=== PATIENT | female | born 1995 | race Hispanic/Latino ===

== ENCOUNTER 2018-12-10 15:46 | Emergency (ER) | payer SELFPAY ==
--- NOTE | 2018-12-10 16:53 | ER ---
Nurse's Notes [facility] Name: Angela Carmen Age: 22 yrs Sex: Female : 1995 Arrival Date: 12/10/2018 Time: 15:52 Bed 13 Private MD: Diagnosis: Low back pain Presentation: 12/10 15:56 Presenting complaint: Patient states: Sharp lower back pain that shoots to left aj buttocks that started suddenly 1 hour ago after bending to pick something up at work. Transition of care: patient was not received from another setting of care. Onset of symptoms was December 10, 2018. Care prior to arrival: None. 15:56 Method Of Arrival: Ambulatory aj 15:56 Acuity: SANTOS 4 aj 16:23 Risk Assessment: Do you want to hurt yourself or someone else? Patient reports no ls4 desire to harm self or others. Initial Sepsis Screen: Does the patient meet any 2 criteria? No. Patient's initial sepsis screen is negative. Does the patient have a suspected source of infection? No. Patient's initial sepsis screen is negative. Triage Assessment: 15:57 General: Appears in no apparent distress. comfortable, Behavior is calm, cooperative, aj appropriate for age. Pain: Complains of pain in lumbar area and left low back. Neuro: Level of Consciousness is awake, alert, obeys commands, Oriented to person, place, time, situation, Appropriate for age. Musculoskeletal: Circulation, motion, and sensation intact. Range of motion: intact in all extremities, Reports pain in lumbar area and left low back. 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 - Social history:: Smoking status: Patient/guardian denies using tobacco. - Ebola Screening: : Patient negative for fever greater than or equal to 101.5 degrees Fahrenheit, and additional compatible Ebola Virus Disease symptoms Patient denies exposure to infectious person Patient denies travel to an Ebola-affected area in the 21 days before illness onset No symptoms or risks identified at this time. Screenin:22 Abuse screen: Denies threats or abuse. Denies injuries from another. Nutritional ls4 screening: No deficits noted. Tuberculosis screening: No symptoms or risk factors identified. Fall Risk None identified. Assessment: 16:20 Pain: Complains of pain in low back area and back and left low back and lumbar area ls4 Pain currently is 4 out of 10 on a pain scale. Neuro: No deficits noted. 16:20 Neuro: Level of Consciousness is awake, alert, obeys commands. Cardiovascular: No ls4 deficits noted. Respiratory: No deficits noted. GI: No deficits noted. Derm: No deficits noted. Musculoskeletal: No deficits noted. Vital Signs: 15:57 BP 154 / 81; Pulse 85; Resp 17; Temp 98.4; Pulse Ox 97% on R/A; Weight 63.5 kg; Height aj 5 ft. 4 in. (162.56 cm); 15:57 Body Mass Index 24.03 (63.50 kg, 162.56 cm) aj ED Course: 15:52 Patient arrived in ED. as 15:57 Triage completed. aj 15:57 Arm band placed on left wrist. aj 16:20 Luis E Garsia PA is PHCP. jr8 16:20 Ross Florez MD is Attending Physician. jr8 16:22 Almita Grant, JOSE is Primary Nurse. ls4 16:22 Patient has correct armband on for positive identification. Bed in low position. Call ls4 light in reach. Side rails up X 1. 16:22 No provider procedures requiring assistance completed. Patient did not have IV access ls4 during this emergency room visit. 16:54 Urine collected: clean catch specimen, clear. dh3 Administered Medications: 17:20 Drug: TORadol - Ketorolac 15 mg Route: IM; Site: left deltoid; ls4 17:50 Follow up: Response: No adverse reaction; Marked relief of symptoms ls4 17:50 Follow up: Response: No adverse reaction; Marked relief of symptoms ls4 17:20 Drug: [place] (7.5 mg-325 mg) 1 tabs Route: PO; ls4 17:38 Follow up: Response: No adverse reaction; Marked relief of symptoms ls4 Outcome: 16:52 Discharge ordered by . jr8 17:37 Discharged to home ambulatory, with friend. ls4 17:37 Condition: good 17:37 Discharge instructions given to patient, friend, Instructed on discharge instructions, follow up and referral plans. medication usage, safety practices, Demonstrated understanding of instructions, follow-up care, medications, Prescriptions given X 2. 18:05 Patient left the ED. ls4 Signatures: Lia Caro, RN RN Brenda Elizondo Josh, PA PA 8 Ailyn Duran 3 Almita Grant RN RN ls4
--- NOTE | 2018-12-10 16:54 | EDPHYS ---
Physician Documentation [facility] Name: Angela Carmen Age: 22 yrs Sex: Female : 1995 Arrival Date: 12/10/2018 Time: 15:52 Bed 13 Private MD: ED Physician Ross Florez HPI: 12/10 16:34 This 22 yrs old Female presents to ER via Ambulatory with complaints of Back jr8 Pain. 16:34 The patient presents with pain that is acute. The symptoms are located in the low back. jr8 Onset: The symptoms/episode began/occurred acutely, today. The pain does not radiate. Associated signs and symptoms: The patient has no apparent associated signs or symptoms. The problem was sustained when lifting boxes. Modifying factors: The patient symptoms are alleviated by nothing, the patient symptoms are aggravated by any movement, bending. Severity of symptoms: At their worst the symptoms were moderate, in the emergency department the symptoms are unchanged. It is unknown whether or not the patient has had similar symptoms in the past. The patient has not recently seen a physician. Stated that while she was at work lifting boxes. Jackson pull in low back. Pain since then and had to leave work because pain was to severe. Denies bowel or bladder dysfunction. Denies radiation of pain, numbness, tingling, or saddle anesthesia . 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 - Social history:: Smoking status: Patient/guardian denies using tobacco. - Ebola Screening: : Patient negative for fever greater than or equal to 101.5 degrees Fahrenheit, and additional compatible Ebola Virus Disease symptoms Patient denies exposure to infectious person Patient denies travel to an Ebola-affected area in the 21 days before illness onset No symptoms or risks identified at this time. ROS: 16:34 Eyes: Negative for injury, pain, redness, and discharge, ENT: Negative for injury, jr8 pain, and discharge, Neck: Negative for injury, pain, and swelling, Cardiovascular: Negative for chest pain, palpitations, and edema, Respiratory: Negative for shortness of breath, cough, wheezing, and pleuritic chest pain, Abdomen/GI: Negative for abdominal pain, nausea, vomiting, diarrhea, and constipation, MS/Extremity: Negative for injury and deformity, Skin: Negative for injury, rash, and discoloration, Neuro: Negative for headache, weakness, numbness, tingling, and seizure. 16:34 Back: Positive for pain at rest, pain with movement, Negative for radiated pain. Exam: 16:34 Eyes: Pupils equal round and reactive to light, extra-ocular motions intact. Lids and jr8 lashes normal. Conjunctiva and sclera are non-icteric and not injected. Cornea within normal limits. Periorbital areas with no swelling, redness, or edema. ENT: Nares patent. No nasal discharge, no septal abnormalities noted. Tympanic membranes are normal and external auditory canals are clear. Oropharynx with no redness, swelling, or masses, exudates, or evidence of obstruction, uvula midline. Mucous membranes moist. Neck: Trachea midline, no thyromegaly or masses palpated, and no cervical lymphadenopathy. Supple, full range of motion without nuchal rigidity, or vertebral point tenderness. No Meningismus. Cardiovascular: Regular rate and rhythm with a normal S1 and S2. No gallops, murmurs, or rubs. Normal PMI, no JVD. No pulse deficits. Respiratory: Lungs have equal breath sounds bilaterally, clear to auscultation and percussion. No rales, rhonchi or wheezes noted. No increased work of breathing, no retractions or nasal flaring. Abdomen/GI: Soft, non-tender, with normal bowel sounds. No distension or tympany. No guarding or rebound. No evidence of tenderness throughout. Skin: Warm, dry with normal turgor. Normal color with no rashes, no lesions, and no evidence of cellulitis. MS/ Extremity: Pulses equal, no cyanosis. Neurovascular intact. Full, normal range of motion. Neuro: Awake and alert, GCS 15, oriented to person, place, time, and situation. Cranial nerves II-XII grossly intact. Motor strength 5/5 in all extremities. Sensory grossly intact. Cerebellar exam normal. Normal gait. 16:34 Back: pain, that is moderate, of the low back area, ROM is painful, with all movement, normal spinal alignment noted, CVA tenderness, is absent, muscle spasm, is not present. Vital Signs: 15:57 BP 154 / 81; Pulse 85; Resp 17; Temp 98.4; Pulse Ox 97% on R/A; Weight 63.5 kg; Height aj 5 ft. 4 in. (162.56 cm); 15:57 Body Mass Index 24.03 (63.50 kg, 162.56 cm) aj MDM: 16:20 Patient medically screened. 8 16:36 Data reviewed: vital signs, nurses notes, and as a result, I will discharge patient. jr8 Data interpreted: Pulse oximetry: on room air is 97 %. Interpretation: normal. Counseling: I had a detailed discussion with the patient and/or guardian regarding: the historical points, exam findings, and any diagnostic results supporting the discharge/admit diagnosis, the need for outpatient follow up, a family practitioner, to return to the emergency department if symptoms worsen or persist or if there are any questions or concerns that arise at home. 12/10 17:00 Order name: Urine Dipstick--Ancillary (enter results); Complete Time: 17:18 ms 12/10 17:00 Order name: Urine --Ancillary (enter results); Complete Time: 17:18 vt 12/10 16:36 Order name: Urine Test (obtain specimen); Complete Time: 16:54 jr8 12/10 16:36 Order name: Urine Dipstick-Ancillary (obtain specimen); Complete Time: 16:54 jr8 Administered Medications: 17:20 Drug: TORadol - Ketorolac 15 mg Route: IM; Site: left deltoid; ls4 17:50 Follow up: Response: No adverse reaction; Marked relief of symptoms ls4 17:50 Follow up: Response: No adverse reaction; Marked relief of symptoms ls4 17:20 Drug: [place] (7.5 mg-325 mg) 1 tabs Route: PO; ls4 17:38 Follow up: Response: No adverse reaction; Marked relief of symptoms ls4 Disposition: 12/11 07:26 Co-signature as Attending Physician, Ross Florez MD I agree with the assessment and kdr plan of care. Chart complete. Disposition: 12/10/18 16:52 Discharged to Home. Impression: Low back pain. - Condition is Stable. - Discharge Instructions: Back Pain, Adult, Musculoskeletal Pain, Back Exercises, [id number], Heat Therapy. - Prescriptions for Ibuprofen 800 mg Oral Tablet - take 1 tablet by ORAL route every 12 hours As needed take with food; 20 tablet. Zanaflex 4 mg Oral Tablet - take 1 tablet by ORAL route every 8 hours As needed; 20 tablet. - Medication Reconciliation Form, Thank You Letter, Antibiotic Education, Prescription Opioid Use form. - Follow up: Private Physician; When: 5 - 6 days; Reason: Recheck today's complaints, Continuance of care, Re-evaluation by your physician. - Problem is new. - Symptoms have improved. Signatures: Dispatcher [employer] EDLia Hollingsworth RN RN Ross De Jesus MD MD kdr Roszak, Josh, PA PA jr8 Almita Grant RN RN ls4 Corrections: (The following items were deleted from the chart) 12/10 18:05 16:52 12/10/2018 16:52 Discharged to Home. Impression: Low back pain. Condition is ls4 Stable. Forms are Medication Reconciliation Form, Thank You Letter, Antibiotic Education, Prescription Opioid Use. Follow up: Private Physician; When: 5 - 6 days; Reason: Recheck today's complaints, Continuance of care, Re-evaluation by your physician. Problem is new. Symptoms have improved. jr8
[2018-12-10 17:12] LABS: Urine Blood NEGATIVE (NEG); Urine Glucose NEGATIVE (NEG); Urine Protein NEGATIVE (NEG)
[2018-12-10] MEDS ORDERED: HYDROCODONE/APAP 7.5/325 MG TAB ONE (17:44)
[2018-12-10] MEDS ORDERED: KETOROLAC 30 MG/ML INJ ONE (17:44)
== END 2018-12-10 18:05 | disposition home or self-care (01) ==
LOC: ER 15:46
DX: M54.5 Low back pain (principal)
CPT/HCPCS: 81003; 81025; 96372; 99283

== ENCOUNTER 2020-06-11 02:39 | Emergency (ER) | payer SELFPAY ==
--- OUTSIDE RECORDS SUMMARY | 2020-06-11 02:41 | XMS REPORT | Continuity of Care Document ---
:1995 Author Organization [facility] t Address [address] [place] [address] Care Team Providers Name Role Phone Lab, [facility] Fam Pob I Attending Clinician Unavailable Gaurav Combs Attending Clinician Problems This patient has no known problems. Allergies, Adverse Reactions, Alerts This patient has no known allergies or adverse reactions. Medications This patient has no known medications. Procedures This patient has no known procedures. Encounters Start End Encounter Admission Attending Care Care Encounter Source Date/Time Date/Time Type Type Clinicians Facility Department ID 2020-04-11 2020-04-11 Laboratory Lab, [facility] [id number] 14:31:50 14:51:50 Only Fam Pob I Health [id number] [place] [id number] Professio [id number] nal 044 Office [address] One 2020-03-31 2020-03-31 Office Jarrod [facility] [id number] 10:54:57 11:38:37 Visit An Nolasco [employer] [id number] [facility] [id number] MATERNAL [id number] & CHILD [address] [place] [address] [facility] Results This patient has no known results.
--- OUTSIDE RECORDS SUMMARY | 2020-06-11 02:42 | XMS REPORT | Summary of Care ---
:1995 Author Organization [facility] Address [address] [place] [address] Care Team Providers Name Role Phone An Garay [facility] Primary Care Provider [phone] Encounter Details Date Type Department Care Team Description 03/17/2020 Orders Only [facility] Doctor Unassigned, No [address] [facility] [place] [address] [address] [place] [address] Allergies No Known Allergiesdocumented as of this encounter (statuses as of 03/22/2020) Medications No known medicationsdocumented as of this encounter (statuses as of 03/22/2020) Active Problems Problem Noted Date Nexplanon insertion 03/17/2020 Nexplanon removal 05/06/2018 Encounter for contraceptive management, unspecified ty pe 07/10/2014 documented as of this encounter (statuses as of 03/22/2020) Resolved Problems Problem Noted Date Resolved Date Well woman exam 01/13/2016 05/06/2018 Nexplanon insertion 01/13/2016 05/06/2018 care and examination of lactating mother 12/23/19 16 05/06/2018 Normal delivery 12/04/2015 12/23/2015 39 weeks gestation of 12/03/2015 12/23/19 16 Labor and delivery indication for care or intervention 12/0212/23/2015 Pain of round ligament affecting , antepartum 09/0912/03/2015 Excess weight gain in , second trimester 07/19/2015 12/04/2015 Elevated blood pressure reading without diagnosis of 015 12/04/2015 hypertension Supervision of high risk , antepartum 04/22/2015 12/04/2015 Nausea and vomiting in prior to 22 weeks gestation 04/22/2015 12/03/2015 Yeast infection of the vagina 07/10/2014 05/24/2015 Screening for STD (sexually transmitted disease) 07/10/2014 05/24/2015 Breast pain in female 04/07/2014 07/10/2014 General counseling for prescription of oral contraceptives 1 07/10/2014 Irregular menstrual cycle 04/07/2014 07/10/2014 documented as of this encounter (statuses as of 03/22/2020) Immunizations Name Administration Dates Next Due HPV9 03/14/2016, 01/13/2016 Influenza Virus Vaccine Quad .5 mL IM 6+ MO 06/30/2019 Influenza Virus Vaccine Quad IM 3+ YRS 04/22/2015 TDAP 09/23/2015 Td 04/07/2008 documented as of this encounter Social History Tobacco Use Types Packs/Day Years Used Date Never Smoker Smokeless Tobacco: Never Used Alcohol Use Drinks/Week oz/Week Comments No 0 Standard drinks or equivalent 0.0 Sex Assigned at Date Recorded Not on file COVID-19 Exposure Response Date Recorded In the last month, have you been in contact with No / Unsure 03/17/2020 11:01 AM CDT someone who was confirmed or suspected to have Coronavirus / COVID-19? documented as of this encounter Last Filed Vital Signs Not on filedocumented in this encounter Plan of Treatment Date Type Specialty Care Team Description 03/31/2020 Routine Visit [facility] Rebecca Garay, MARISOLP [address] [place], [place] [address] [phone] Health Maintenance Due Date Last Done Comments Depression Screening 06/30/2020 06/30/2019 HPV VACCINES (3 - 3-dose 07/06/2020 03/14/2016, Postpon ed from 07/15/2016 series) 01/13/2016 (Insurance / Fin ancial) INFLUENZA VACCINE (#1) 2020 06/30/2019, Postponed from 02/23/2020 04/22/2015 (Refused) PAP SMEAR 06/30/2022 06/30/2019, 09/23/2015 DTaP,Tdap,and Td Vaccines (3 09/22/2025 09/23/2015, - Td) 04/07/2008 PNEUMOCOCCAL 0-64 YEARS Aged Out No longe r eligible based COMBINED SERIES on patient's age to complete this to [facility] documented as of this encounter Procedures Procedure Name Priority Date/Time Associated Diagnosis Comme nts CONSENT FOR CONTRACEPTION Routine 03/17/2020 12:01 AM CDT documented in this encounter Results Not on filedocumented in this encounter Insurance Payer Benefit Plan / Subscriber ID Effective Dates Phone Addre ss Type Group [employer] FAMILY FAMILY PLANNING [id number] 2020-Kerry RAGLAND Agency PLANNING MAEGAN MAEGAN [phone] [place] [id number] [place] [address] documented as of this encounter Advance Directives Name Relationship Healthcare Agent Relationship Co mmunication Nimo Nichols [facility] Health Care Agent [phone] ( Home)
--- OUTSIDE RECORDS SUMMARY | 2020-06-11 02:42 | XMS REPORT | Summary of Care ---
:1995 Author Organization [facility] Address [address] [place] [address] Care Team Providers Name Role Phone An Garay [facility] Primary Care Provider [phone] Reason for Visit Reason Comments NEXPLANON Encounter Details Date Type Department Care Team Description 03/17/2020 Office Visit [facility]- An Garay [facility] control counseling (Primary Dx); Jennifer Nolasco [facility] Nexplanon insertion [address] [facility] [address] [place], [place] [phone] Allergies No Known Allergiesdocumented as of this encounter (statuses as of 03/17/2020) Medications Hospital, Clinic, or Other Ordered Dose Route Frequency Start Date End Date Status Facility Administered Medication etonogestreL (NEXPLANON) 68 mg Sdrm ONCE NOW 03/17/202002/23 Ended implant 68 mg documented as of this encounter (statuses as of 03/17/2020) Active Problems Problem Noted Date Nexplanon insertion 03/17/2020 Nexplanon removal 05/06/2018 Encounter for contraceptive management, unspecified ty pe 07/10/2014 documented as of this encounter (statuses as of 03/17/2020) Resolved Problems Problem Noted Date Resolved Date [...] as of this encounter (statuses as of 03/17/2020) Immunizations Name Administration Dates Next Due HPV9 [...] of this encounter Last Filed Vital Signs Vital Sign Reading Time Taken Comments Blood Pressure 127/73 03/17/2020 11:01 AM CDT Pulse 69 03/17/2020 11:01 AM CDT Temperature 36.1 C (96.9 F) 03/17/2020 11:01 AM CDT Respiratory Rate 16 03/17/2020 11:01 AM CDT Oxygen Saturation - - Inhaled Oxygen Concentration - - Weight 73.9 kg (163 lb) 03/17/2020 11:01 AM CDT Height 162.6 cm (5' 4") 03/17/2020 11:01 AM CDT Body Mass Index 27.98 03/17/2020 11:01 AM CDT documented in this encounter Progress Notes An Garay WHCNP - 03/17/2020 10:45 AM CDTNexplanon PLACEMENT PROCEDURE NOTE Preoperative Diagnoses: desires LARC The risks, benefits and alternatives were discussed. The patient voiced her understanding. She wished to proceed and an informed consent was obtained. Patient has been identified by name and and will be undergoing Nexplanon placement. Patient is right handed. Patient, procedure and site have been confirmed by the following clinicians: Re Garay DNP and Yadi Fox RN . Timeout performed by LAZARO Aguilar at time of procedure with Nori JOHN student present. Procedure: The patient is placed on the exam table in a supine position. Her non-dominant arm is flexed at the elbow and externally rotated so her wrist is parallel to her ear and her hand is positioned next to her head. The inner aspect of the upper arm is marked at 8cm and 12cm superior to the medial epicondyle, in the mid-portion of the upper arm, parallel with the humerus. The surface of the inner arm is then prepped with alcohol. Sterile drapes are applied. The insertion area is injected subcutaneously with 2 ccs of lidocaine 1% without epinephrine along the planned insertion tunnel. The Nex planon insertion needle is then inserted at 8cm superior to the medial epicondyle, using counter traction and lifting the skin to keep the needle in the subdermal connective tissue. The needle is advanced to 12 cm above the medial epicondyle. The cannula is then retracted and needle is removed. Thereis minimal bleeding from the insertion site. The Nexplanon capsule is easily palpable by myself and the patient. Sterile gauze and a pressure dressing is placed over the insertion site. The patient tolerated the procedure well and there were no complications. Post-procedure instructions given. Patient verbalized understanding. Findings/Assessment Nexplanon placed successfully, patient tolerated procedure well Plan Return to clinic in 2 weeks. Nexplanon Lot #: [id number] Year removal date: 02/2023 Patient palpated implant: Yes Yadi Sol RN - 03/17/2020 10:45 AM CDTPt in clinic for Nexplanon placement. Last date of sexual intercourse was 2+ WEEKS AGO. LMP 02/16/2020 UPT negative. Informed consent signed and obtained from pt Pt instructed to use a back up control method for the first 7 days, side effects and ER warnings discussed, verbalized understanding. Nexplanon (lot:[id number] exp:05/03/2022)dispensed from clinic stock to provider for placement. YADI CASAS RN 03/17/2020 11:27 AM documented in this encounter Plan of Treatment Health Maintenance Due Date Last Done Comments [...] on patient's age to complete this to [facility] documented as of this encounter Procedures Procedure Name Priority Date/Time Associated Diagnosis Comme nts POCT TEST Routine 03/17/2020 11:02 AM control Results for this CDT counseling procedure are i n the results section. documented in this encounter Results POCT TEST (03/17/2020 11:02 AM CDT) Pathologist Sig nature POCT PREG Negative On board controls acceptable Yes with C Line POCT PREG LOT # POCT PREG TEST DATE Specimen Urine - URINE, CLEAN CATCH documented in this encounter Visit Diagnoses Diagnosis control counseling - Primary General counseling for initiation of oth er contraceptive measures Nexplanon insertion Insertion of implantable subdermal contr aceptive documented in this encounter Administered Medications Medication Order MAR Action Action Date Dose Rate Site etonogestreL (NEXPLANON) Given 03/17/2020 11:31 AM CDT 68 mg Left Arm implant 68 mg 68 mg, Subdermal, ONCE NOW, 1 dose, Emili 03/17/20 at 1230, Routine, Use approved by: HAND DRILLER documented in this encounter Insurance Payer Benefit Plan / Subscriber ID Effective Dates Phone Addre ss Type Group [facility] FAMILY FAMILY PLANNING [id number] 2020-Kerry RAGLAND Agency PLANNING MAEGAN MAEGAN [phone] nt [id number] [place] [phone] documented as of this encounter Advance Directives Name Relationship Healthcare Agent Relationship Co mmunication Nimonorma Nichols [facility] Health Care Agent [phone] ( Home)
--- OUTSIDE RECORDS SUMMARY | 2020-06-11 02:42 | XMS REPORT | Summary of Care ---
:1995 Author Organization [facility] Address [address] [place] [address] Care Team Providers Name Role Phone An Garay [facility] Primary Care Provider Reason for Visit Reason Comments NEXPLANON Encounter Details Date Type Department Care Team Description 03/17/2020 Office Visit [facility]- An Garay [facility] control counseling (Primary Dx); Jennifer Nolasco [facility] Nexplanon insertion [address] [facility] [address] [place], [place] [phone] Allergies No Known Allergiesdocumented as of this [...] clinic in 2 weeks. Nexplanon Lot #: [id number] Year removal date: 02/2023 Patient palpated implant: [...] and ER warnings discussed, verbalized understanding. Nexplanon (lot:[id number] exp:05/03/2022)dispensed from clinic stock to provider for [...] on patient's age to complete this to [facility] documented as of this encounter Procedures Procedure [...] 03/17/20 at 1230, Routine, Use approved by: REFRIGERATOR CABINETMAKER documented in this encounter Insurance Payer Benefit Plan / Subscriber ID Effective Dates Phone Addre ss Type Group [facility] FAMILY FAMILY PLANNING [id number] 2020-Kerry RAGLAND Agency PLANNING MAEGAN MAEGAN [phone] nt [phone] [place] [phone] 1 documented as of this encounter Advance Directives Name Relationship Healthcare Agent Relationship Co mmunication Nimonorma Nichols Sibling Health Care Agent [phone] ( Home)
--- OUTSIDE RECORDS SUMMARY | 2020-06-11 02:43 | XMS REPORT | Summary of Care ---
:1995 Author Organization [facility] Address [address] [place] [address] Care Team Providers Name Role Phone An Garay [facility] Primary Care Provider Reason for Visit Reason Comments NEXPLANON Encounter Details Date Type Department Care Team Description 03/31/2020 Office Visit [facility]- An Garayer for contraceptive management, unspecified type (Primary Dx); [facility] [facility] [address] [place], [place] [phone] Allergies No Known Allergiesdocumented as of this encounter (statuses as of 03/31/2020) Medications No known medicationsdocumented as of this encounter (statuses as of 03/31/2020) Active Problems Problem Noted Date Nexplanon in place 03/17/2020 Nexplanon removal 05/06/2018 Encounter for contraceptive management, unspecified ty pe 07/10/2014 documented as of this encounter (statuses as of 03/31/2020) Resolved Problems Problem Noted Date Resolved Date [...] as of this encounter (statuses as of 03/31/2020) Immunizations Name Administration Dates Next Due HPV9 [...] been in contact with No / Unsure 03/31/2020 11:22 AM CDT someone who was confirmed or suspected to have Coronavirus / COVID-19? documented as of this encounter Last Filed Vital Signs Vital Sign Reading Time Taken Comments Blood Pressure 122/77 03/31/2020 11:22 AM CDT Pulse 77 03/31/2020 11:22 AM CDT Temperature 36.4 C (97.5 F) 03/31/2020 11:22 AM CDT Respiratory Rate 16 03/31/2020 11:22 AM CDT Oxygen Saturation - - Inhaled Oxygen Concentration - - Weight 74.2 kg (163 lb 8 oz) 03/31/2020 11:22 AM CDT Height 162.6 cm (5' 4") 03/31/2020 11:22 AM CDT Body Mass Index 28.06 03/31/2020 11:22 AM CDT documented in this encounter Progress Notes An Garay, WHCNP - 03/31/2020 10:30 AM CDT Chief complaint: Chief Complaint Patient presents with NEXPLANON HPI: the patient is here today for nexplanon check. She reports she is pleased with her method and denies having any issues or concerns today. Histories OB History Para Term AB Living 1 1 1 1 SAB TAB Ectopic Multiple Live Births 0 1 # Outcome Date GA Lbr Deo/2nd Weight Sex Delivery Anes PTL Lv 1 Term 12/04/15 39w1d 7 lb 12.2 oz (3.52 kg) F VAGINAL IV narcotic JAMES Comments: Maternal Age: 21; :1; Parity:1 Mother's Blood Type:O pos Baby's Blood Type:O pos Maternal Serological Test:normal Maternal Group B Strep Screening:negative; Adequate Treatment:not applicable Complications:no Labor Complications:no OAE: passed Hepatitis B Vaccine:yes Problems:yes - Left clavicle fracture 1st screen collected on 12/05/15 showed normal. mg Past Medical History: Diagnosis Date Irregular menstrual cycle 04/07/2014 Menstrual disorder Screening for STD (sexually transmitted disease) 07/10/2014 Vision problems wears glasses Yeast infection of the vagina 07/10/2014 Family History Problem Relation Age of Onset Depression Mother Diabetes Mother High cholesterol Maternal Uncle Diabetes Maternal Grandmother Hypertension Maternal Grandmother Hypertension Paternal Grandmother Arthritis NoFHx Asthma NoFHx defects NoFHx Breast Cancer NoFHx Colon Cancer NoFHx Ovarian Cancer NoFHx Uterine Cancer NoFHx Cancer NoFHx Genetic NoFHx Heart NoFHx Mental retardation NoFHx Neurological NoFHx Osteoporosis NoFHx Psychiatry NoFHx Other - see comments NoFHx Family Status Relation Name Status Mo (Not Specified) MUnc (Not Specified) MGMo (Not Specified) PGMo (Not Specified) NoFHx (Not Specified) Past Surgical History: Procedure Laterality Date INSERT CERVICAL DILATOR 12/03/2015 Social History Socioeconomic History Marital status: Single Spouse name: Not on file Number of children: 0 Years of education: Not on file Highest education level: Not on file Occupational History 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 Social Needs Financial resource strain: Not on file Food insecurity Worry: Not on file Inability: Not on file Transportation needs Medical: Not on file Non-medical: Not on file Tobacco Use Smoking status: Never Smoker Smokeless tobacco: Never Used Substance and Sexual Activity Alcohol use: No Alcohol/week: 0.0 standard drinks Drug use: No Sexual activity: Not Currently Partners: Male control/protection: None Comment: last sexual intercourse 02/22/2019 Lifestyle Physical activity Days per week: Not on file Minutes per session: Not on file Stress: Not on file Relationships Social connections Talks on phone: Not on file Gets together: Not on file Attends hindu service: Not on file Active member of club or organization: Not on file Attends meetings of clubs or organizations: Not on file Relationship status: Not on file Intimate partner violence Fear of current or ex partner: Not on file Emotionally abused: Not on file Physically abused: Not on file Forced sexual activity: Not on file Other Topics Concern Service Not Asked Blood Transfusions No Caffeine Concern Not Asked Occupational Exposure Not Asked Hobby Hazards Not Asked Sleep Concern Not Asked Stress Concern Not Asked Weight Concern Not Asked Special Diet Not Asked Back Care Not Asked Exercise Not Asked Bike Helmet Not Asked Seat Belt Not Asked Self-Exams Not Asked Social History Narrative No domestic violence or abuse Pt states she has no hindu preference Patient lives with mother and child. Social History Substance and Sexual Activity Sexual Activity Not Currently Partners: Male control/protection: None Comment: last sexual intercourse 02/22/2019 Labs No new labs and Office Visit on 03/17/2020 Component Date Value POCT PREG 03/17/2020 Negative On board controls accept* 03/17/2020 Yes Laboratory Only on 01/29/2020 Component Date Value SARS-CoV-2 PCR 01/29/2020 Not Detected Office Visit on 01/14/2020 Component Date Value POCT PREG 01/14/2020 Negative On board controls accept* 01/14/2020 Yes Radiology No new radiology. Allergies Angela has No Known Allergies. Medications Angela currently has no medications in their medication list. Review of Systems Constitutional: Negative. HENT: Negative. Eyes: Negative. Respiratory: Negative. Breasts: Negative. Cardiovascular: Negative. Gastrointestinal: Negative. Genitourinary: Negative. Musculoskeletal: Negative. Skin: Negative. Neurological: Negative. Psychiatric/Behavioral: Negative. Endocrine: Endocrine negative BP 122/77 (BP Location: Right arm, Patient Position: Sitting, BP CUFF SIZE: Adult Medium) | Pulse 77 | Temp 36.4 C (97.5 F) (Oral) | Resp 16 | Ht 5' 4" (1.626 m) | Wt 163 lb 8 oz (74.2 kg) | BMI 28.06 kg/m Pregravid BMI: Could not be calculated Physical Exam Vitals reviewed. Constitutional: She is oriented to person, place, and time. She appears well- developed and well-nourished. Her body habitus is normal. Cardiovascular: Regular rate and rhythm. No peripheral edema present. Pulmonary/Chest: Normal inspiratory effort. Neuro/Psychiatric: She has a normal mood and affect. She is oriented to person, place, and time. Skin: Skin normal. No lesion, no rash and no ulceration present. Nexplanon palpated in upper left arm Assessment/Plan Return to clinic in 12 weeks. for WWE or sooner as needed Encounter for contraceptive management, unspecified type (primary encounter diagnosis) Nexplanon in place Comment: pleased Plan: as needed mgmt This visit did not involve counseling and coordination that comprised more than 50% of the visit time. LAZARO Aguilar 03/31/2020 12:00 PM documented in this encounter Plan of Treatment [...] on patient's age to complete this to pic documented as of this encounter Results Not on filedocumented in this encounter Visit Diagnoses Diagnosis Encounter for contraceptive management, unspecified type - Primary Nexplanon in place Presence of subdermal contraceptive wilder ce documented in this encounter Insurance Payer Benefit Plan / Subscriber ID Effective Dates Phone Addre ss Type Group [facility] FAMILY FAMILY PLANNING [id number] 2020-Kerry RAGLAND Agency PLANNING MAEGAN MAEGAN [phone] nt [phone] [place] [phone] 1 documented as of this encounter Advance Directives Name Relationship Healthcare Agent Relationship Co mmunication Nimo Simone [facility] Health Care Agent [phone] ( Home)
--- OUTSIDE RECORDS SUMMARY | 2020-06-11 02:43 | XMS REPORT | Summary of Care ---
:1995 Author Organization [facility] Address [address] [place] [address] Care Team Providers Name Role Phone An Garay [facility] Primary Care Provider Reason for Visit Reason Comments LAB Encounter Details Date Type Department Care Team Description 04/11/2020 Laboratory Only [facility] Family Kike Garay, [facility] [address] [place] [address] Exposure to Medicine - [facility], Adc Fam Pob I SARS-associated [address] [facility] coronavir[address] s ([address] Dx) [place] [phone] Allergies No Known Allergiesdocumented as of this encounter (statuses as of 04/11/2020) Medications No known medicationsdocumented as of this encounter (statuses as of 04/11/2020) Active Problems Problem Noted Date Nexplanon in place 03/17/2020 Nexplanon removal 05/06/2018 Encounter for contraceptive management, unspecified ty pe 07/10/2014 documented as of this encounter (statuses as of 04/11/2020) Resolved Problems Problem Noted Date Resolved Date [...] as of this encounter (statuses as of 04/11/2020) Immunizations Name Administration Dates Next Due HPV9 [...] Sign Reading Time Taken Comments Blood Pressure - - Pulse 72 04/11/2020 11:00 AM CDT Temperature - - Respiratory Rate 16 04/11/2020 11:00 AM CDT Oxygen Saturation 98% 04/11/2020 11:00 AM CDT Inhaled Oxygen Concentration - - Weight - - Height - - Body Mass Index - - documented in this encounter Nursing Notes Lia Bishop MA - 04/11/2020 2:40 PM CDTAngela Nichols is a 24 year old female here for a Rule Out Covid-19 Nasopharyngeal Swab. Patient educated on plan of care for visit, swabbing technique, risks and benefits of test and length of time toreceive results. Verbal consent obtained to perform test. CDC Fact Sheet for Patients provided to patient. All droplet and contact precautions taken with appropriate PPE worn while interacting with patient. - Goggles - N95 Mask - Gloves - Gown RR=16 % O2 Sat=98 Patient swabbed using appropriate nasopharyngeal technique, and patient tolerated well. Patient was discharged in stable condition. Lia Bishop MA 04/11/2020 2:37 PM documented in this encounter Plan of Treatment Name Type Priority Associated Diagnoses Order S chedule COVID-19 (PCR MOLECULAR LAB Routine Exposure to Expe cted: 04/11/2020, TESTING) SARS-associated Expires: coronavirus Health Maintenance Due Date Last Done Comments [...] on patient's age to [facility] documented as of this encounter Results Not on filedocumented in this encounter Visit Diagnoses Diagnosis Exposure to SARS-associated coronavirus - Primary documented in this encounter Additional Health Concerns Infection Onset Date Last Indicated Resolved Time COVID-19 Rule Out 04/11/2020 04/11/2020 documented as of this encounter Advance Directives Name Relationship Healthcare Agent Relationship Co mmunication Nimo Vargas Health Care Agent [phone] ( Home)
--- OUTSIDE RECORDS SUMMARY | 2020-06-11 02:43 | XMS REPORT | Summary of Care ---
:1995 Author Organization [facility] Address [address] [place] [address] Care Team Providers Name Role Phone An Garay [facility] Primary Care Provider Reason for Visit Reason Comments NEXPLANON Encounter Details Date Type Department Care Team Description 03/31/2020 Office Visit [facility]- An Garayer for contraceptive management, unspecified type (Primary Dx); [facility] [address] [facility] [address] [place], [place] [phone] Allergies No Known Allergiesdocumented as of this [...] level: Not on file Occupational History 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 [...] Effective Dates Phone Addre ss Type Group [facility] FAMILY FAMILY PLANNING [id number] 2020-Kerry RAGLAND Agency PLANNING MAEGAN MAEGAN [phone] nt [phone] [place] [phone] 1 documented as of this encounter Advance Directives Name Relationship Healthcare Agent Relationship Co mmunication Nimo Simone [facility] Health Care Agent [phone] ( Home)
--- NOTE | 2020-06-11 04:11 | ER ---
Nurse's Notes [facility] Name: Angela Carmen Age: 24 yrs Sex: Female : 1995 Arrival Date: 06/11/2020 Time: 02:41 Bed 15 Private MD: Diagnosis: Foreign Body Senation-Throat Presentation: 06/11 02:47 Chief complaint: Patient states: Accidentally swallowed a small piece of plastic, pt sg reports still has the sensation that the plastic is digging into left side of neck/throat, pt reports induced vomiting but nothing came up. Coronavirus screen: Client denies travel out of the [place] in the last 14 days. At this time, the client does not indicate any symptoms associated with coronavirus-19. Ebola Screen: Patient negative for fever greater than or equal to 101.5 degrees Fahrenheit, and additional compatible Ebola Virus Disease symptoms Patient denies exposure to infectious person. Patient denies travel to an Ebola-affected area in the 21 days before illness onset. No symptoms or risks identified at this time. Initial Sepsis Screen: Does the patient meet any 2 criteria? No. Patient's initial sepsis screen is negative. Does the patient have a suspected source of infection? No. Patient's initial sepsis screen is negative. Risk Assessment: Do you want to hurt yourself or someone else? Patient reports no desire to harm self or others. Onset of symptoms was June 11, 2020. Care prior to arrival: None. Transition of care: patient was not received from another setting of care. 02:47 Method Of Arrival: Ambulatory sg 02:47 Acuity: SANTOS 4 sg Historical: - Allergies: 02:51 No Known Allergies; sg - Home Meds: 02:51 None [Active]; sg - PMHx: 02:51 None; sg - PSHx: 02:51 None; sg - Immunization history:: Adult Immunizations. - Social history:: Smoking status: Patient denies any tobacco usage or history of. Screenin:55 Abuse screen: Denies threats or abuse. Nutritional screening: No deficits noted. jb4 Tuberculosis screening: No symptoms or risk factors identified. Fall Risk None identified. Assessment: 02:55 General: Appears in no apparent distress. comfortable, Behavior is calm, cooperative, jb4 appropriate for age. Pain: Denies pain. Neuro: Level of Consciousness is awake, alert, obeys commands, Oriented to person, place, time, situation. Cardiovascular: Patient's skin is warm and dry. Respiratory: Airway is patent Respiratory effort is even, unlabored, Respiratory pattern is regular, symmetrical. GI: No signs and/or symptoms were reported involving the gastrointestinal system. : No signs and/or symptoms were reported regarding the genitourinary system. EENT: No signs and/or symptoms were reported regarding the EENT system. Derm: Skin Skin is pink, warm \T\ dry. Musculoskeletal: Circulation, motion, and sensation intact. Range of motion: intact in all extremities. 04:23 Reassessment: Patient appears in no apparent distress at this time. Patient and/or jb4 family updated on plan of care and expected duration. Pain level reassessed. Patient is alert, oriented x 3, equal unlabored respirations, skin warm/dry/pink. Vital Signs: 02:47 BP 138 / 89; Pulse 86; Resp 16 S; Temp 97.7; Pulse Ox 100% on R/A; Pain 4/10; sg ED Course: 02:41 Patient arrived in ED. ag3 02:47 Matthew Everett, RN is Primary Nurse. jb4 02:47 Phil Diaz MD is Attending Physician. mh7 02:47 Arm band placed on. sg 02:50 Triage completed. sg 02:55 Patient has correct armband on for positive identification. Bed in low position. Call jb4 light in reach. Side rails up X 1. Pulse ox on. NIBP on. 03:31 Neck Soft Tissue XRAY In Process Unspecified. EDMS 03:32 Chest Single View XRAY In Process Unspecified. EDMS 04:09 Gabby Duran MD is Referral Physician. 7 04:23 No provider procedures requiring assistance completed. Patient did not have IV access jb4 during this emergency room visit. Administered Medications: No medications were administered Outcome: 04:10 Discharge ordered by . 7 04:23 Discharged to home ambulatory. jb4 04:23 Condition: stable 04:23 Discharge instructions given to patient, Instructed on discharge instructions, follow up and referral plans. Demonstrated understanding of instructions, follow-up care. 04:23 Patient left the ED. jb4 Signatures: Dispatcher [employer] EDShaheed Fulton RN RN Matthew Arana RN RN jb4 Kendra Carmen ag3 Phil Diaz MD MD mh7
--- NOTE | 2020-06-11 04:11 | EDPHYS ---
Physician Documentation [facility] Name: Angela Carmen Age: 24 yrs Sex: Female : 1995 Arrival Date: 06/11/2020 Time: 02:41 Bed 15 Private MD: ED Physician Phil Diaz HPI: 06/11 02:54 This 24 yrs old Female presents to ER via Ambulatory with complaints of mh7 Foreign Body In Throat. 02:54 The patient or guardian reports the patient has a suspected foreign body, of the mh7 throat. The reported likely foreign body is piece of plastic. Onset: The symptoms/episode began/occurred last night, at 20:00. Current symptoms: foreign body sensation. Treatment Prior to Arrival: tried to vomit. Historical: - Allergies: 02:51 No Known Allergies; sg - Home Meds: 02:51 None [Active]; sg - PMHx: 02:51 None; sg - PSHx: 02:51 None; sg - Immunization history:: Adult Immunizations. - Social history:: Smoking status: Patient denies any tobacco usage or history of. ROS: 02:54 Constitutional: Negative for fever, chills, and weight loss, Eyes: Negative for injury, mh7 pain, redness, and discharge, Neck: Negative for injury, pain, and swelling, Cardiovascular: Negative for chest pain, palpitations, and edema, Respiratory: Negative for shortness of breath, cough, wheezing, and pleuritic chest pain, Abdomen/GI: Negative for abdominal pain, nausea, vomiting, diarrhea, and constipation, Back: Negative for injury and pain, : Negative for injury, bleeding, discharge, and swelling, MS/Extremity: Negative for injury and deformity, Skin: Negative for injury, rash, and discoloration, Neuro: Negative for headache, weakness, numbness, tingling, and seizure, Psych: Negative for depression, anxiety, suicide ideation, homicidal ideation, and hallucinations, Allergy/Immunology: Negative for hives, rash, and allergies, Endocrine: Negative for neck swelling, polydipsia, polyuria, polyphagia, and marked weight changes, Hematologic/Lymphatic: Negative for swollen nodes, abnormal bleeding, and unusual bruising. Exam: 02:54 Constitutional: This is a well developed, well nourished patient who is awake, alert, mh7 and in no acute distress. Head/Face: Normocephalic, atraumatic. Eyes: Pupils equal round and reactive to light, extra-ocular motions intact. Lids and lashes normal. Conjunctiva and sclera are non-icteric and not injected. Cornea within normal limits. Periorbital areas with no swelling, redness, or edema. 02:54 Neck: Trachea midline, no thyromegaly or masses palpated, and no cervical lymphadenopathy. Supple, full range of motion without nuchal rigidity, or vertebral point tenderness. No Meningismus. Chest/axilla: Normal chest wall appearance and motion. Nontender with no deformity. No lesions are appreciated. Cardiovascular: Regular rate and rhythm with a normal S1 and S2. No gallops, murmurs, or rubs. Normal PMI, no JVD. No pulse deficits. Respiratory: Lungs have equal breath sounds bilaterally, clear to auscultation and percussion. No rales, rhonchi or wheezes noted. No increased work of breathing, no retractions or nasal flaring. Abdomen/GI: Soft, non-tender, with normal bowel sounds. No distension or tympany. No guarding or rebound. No evidence of tenderness throughout. Back: No spinal tenderness. No costovertebral tenderness. Full range of motion. Skin: Warm, dry with normal turgor. Normal color with no rashes, no lesions, and no evidence of cellulitis. MS/ Extremity: Pulses equal, no cyanosis. Neurovascular intact. Full, normal range of motion. Neuro: Awake and alert, GCS 15, oriented to person, place, time, and situation. Cranial nerves II-XII grossly intact. Motor strength 5/5 in all extremities. Sensory grossly intact. Cerebellar exam normal. Normal gait. Psych: Awake, alert, with orientation to person, place and time. Behavior, mood, and affect are within normal limits. 02:54 ENT: External ear(s): are unremarkable, Nose: is normal, Mouth: is normal, Lips: normal, Oral mucosa: normal, Gums: normal with healthy appearance, Tongue: is normal, abscess, is not appreciated, drooling, is not appreciated, Posterior pharynx: is normal, airway is patent, Airway: normal, Tonsils: are normal in appearance, Uvula: normal, swelling, is not appreciated, erythema, is not appreciated, exudate, is not appreciated, peritonsillar mass, is not appreciated, pooling of secretions, is not appreciated, Dental exam: normal, Voice: is normal. Vital Signs: 02:47 BP 138 / 89; Pulse 86; Resp 16 S; Temp 97.7; Pulse Ox 100% on R/A; Pain 4/10; sg MDM: 04:07 Data reviewed: vital signs, nurses notes, radiologic studies, plain films. Data [facility] interpreted: Pulse oximetry: on room air is 100 %. Interpretation: normal. Counseling: I had a detailed discussion with the patient and/or guardian regarding: the historical points, exam findings, and any diagnostic results supporting the discharge/admit diagnosis, radiology results, the need for outpatient follow up, to return to the emergency department if symptoms worsen or persist or if there are any questions or concerns that arise at home. Response to treatment: the patient's symptoms have markedly improved after treatment. 04:10 Patient medically screened. [facility] 06/11 02:54 Order name: Neck Soft Tissue XRAY [facility] 06/11 02:54 Order name: Chest Single View XRAY [facility] Administered Medications: No medications were administered Disposition: 06/11/20 04:10 Discharged to Home. Impression: Foreign Body Senation-Throat. - Condition is Stable. - Discharge Instructions: Swallowed Foreign Body, Adult, [id number]. - Medication Reconciliation Form, Thank You Letter, Antibiotic Education, Prescription Opioid Use form. - Follow up: Private Physician; When: 1 - 2 days; Reason: Worsening of condition, Recheck today's complaints, Continuance of care, Re-evaluation by your physician. Follow up: Gabby Duran MD; When: 1 - 2 days; Reason: If symptoms return, Worsening of condition, Recheck today's complaints. - Problem is new. - Symptoms have improved. Signatures: Dispatcher [employer] EDMS Shaheed Gomez RN RN Matthew Arana RN RN jb4 Phil Diaz MD MD 7 Corrections: (The following items were deleted from the chart) 04:08 04:07 Data reviewed: vital signs, [place] [id number] 04:23 04:10 06/11/2020 04:10 Discharged to Home. Impression: Foreign Body Senation-Throat. jb4 Condition is Stable. Forms are Medication Reconciliation Form, Thank You Letter, Antibiotic Education, Prescription Opioid Use. Follow up: Private Physician; When: 1 - 2 days; Reason: Worsening of condition, Recheck today's complaints, Continuance of care, Re-evaluation by your physician. Follow up: Gabby Duran; When: 1 - 2 days; Reason: If symptoms return, Worsening of condition, Recheck today's complaints. Problem is new. Symptoms have improved. mh7
--- NOTE | 2020-06-12 17:05 | RAD REPORT ---
EXAM DESCRIPTION: RAD - Neck Soft Tissue - 06/11/2020 3:31 am CLINICAL HISTORY: The patient is 24 years old and is Female; FORIEGN BODY TECHNIQUE: Lateral view of the soft tissues of the neck. COMPARISON: No relevant prior studies available. FINDINGS: AIRWAY: Unremarkable. No abnormal narrowing. BONES/JOINTS: Unremarkable. SOFT TISSUES: Unremarkable. No abnormal soft tissue prominence. Normal epiglottis. IMPRESSION: Normal soft tissues of the neck. Electronically signed by: Maryanne Rodriguez MD 06/11/2020 3:52 AM NETWORK CONTRACTOR Due to temporary technical issues with the PACS/Fluency reporting system, reports are being signed by the in house radiologists without review as a courtesy to insure prompt reporting. The interpreting radiologist is fully responsible for the content of the report.
--- NOTE | 2020-06-12 17:07 | RAD REPORT ---
EXAM DESCRIPTION: RAD - Chest Single View - 06/11/2020 3:32 am CLINICAL HISTORY: Swallowed foreign body TECHNIQUE: Single frontal view of the chest is submitted. COMPARISON: None available for comparison FINDINGS: Heart: The cardiothoracic silhouette is within normal limits. Lungs: No focal consolidation. Mediastinum: Unremarkable Pleura: No appreciable effusion. No pneumothorax. Bones: Intact Upper abdomen: Unremarkable Other: No radiopaque foreign body. IMPRESSION: No radiopaque foreign body. 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 The interpreting radiologist is fully responsible for the content of the report.
[2020-06-13 21:06] VITALS: BP 138/89; TEMP 97.7; O2SAT 100
== END 2020-06-11 04:23 | disposition home or self-care (01) ==
LOC: ER 02:39
DX: Z71.1 Person with feared health complaint in whom no diagnosis is made (principal)
CPT/HCPCS: 70360; 71045; 99283

== ENCOUNTER 2021-11-01 00:15 | Emergency (ER) | payer OTHER, SELFPAY ==
--- OUTSIDE RECORDS SUMMARY | 2021-11-01 00:20 | XMS REPORT | Continuity of Care Document ---
:1995 Author Organization [facility] t Address [address] [place] [address] Care Team Providers Name Role Phone An Combs Primary Care Physician Gaurav ENCINAS Attending Clinician Unavailable Gaurav Combs Attending Clinician Lab Attending Clinician Unavailable Lemuel MSN, A Attending Clinician LEMUEL, A Attending Clinician Unavailable 1, Us Room Attending Clinician Unavailable William MELENDEZ, F Attending Clinician Lab, Fam Pob I Attending Clinician Unavailable Payers Payer Name Policy Type Policy Number Effective Date Expiration Date S ource [employer]C MOM CHIP [id number] 2021 CRUZ LOW FPL 00:00:00 CHIP CRUZ PENDING 2021 2021 PENDING 00:00:00 00:00:00 Advance Directives Directive Decision Effective Termination Comments Source Date Date Healthcare Agents on N/A NPI: [id number] FileNameRelationshipHealthcare [id number] [facility]ication[facility] [phone] (Home) Problems Condition Condition Condition Status Onset Resolution Last Treating Co mments Source Name Details Category Date Date Treatment Clinician Date Supervisio Supervisio Disease Active N PI:183 n of n of 3-17 [id number] high-risk high-risk 00:00: 00 Multiparit Multiparit Disease Active N PI:183 y y 3-17 [id number] 00:00: 00 Over Over Disease Active NPI:183 weight weight 3-17 [id number] 00:00: 00 Allergies, Adverse Reactions, Alerts Allergy Allergy Status Severity Reaction(s) Onset Inactive Treating Comm ents Source Name Type Date Date Clinician NO KNOWN Drug Active NPI:183 ALLERGIE Class [id number] S Social History Social Habit Start Date Stop Date Quantity Comments Source ASSERTION 2021-08-11 00:00:00 Exposure to 2021-10-13 2021-10-23 Not sure NPI:[id number] SARS-CoV-2 (event) 00:00:00 12:10:00 Alcohol intake 2021-10-05 2021-10-05 0 /d NPI:[id number] 00:00:00 00:00:00 Sex [birth year] NPI :[id number] 00:00:00 00:00:00 Smoking Status Start Date Stop Date Source Never smoker Medications Ordered Filled Start Stop Current Ordering Indication Dosage Frequency Signature Comments Components Source Medication Medication Date Date Medication? Clinician (SIG) Name Name proMETHazin Yes [id number] 25mg Take 1 NPI:183 e 25 mg 3-17 tablet by [id number] tablet 00:00: mouth 00 every 6 (six) hours as needed for Nausea and Vomiting (N/V). proMETHazin Yes [id number] 25mg Take 1 NPI:183 e 25 mg 3-17 tablet by [id number] tablet 00:00: mouth 00 every 6 (six) hours as needed for Nausea and Vomiting (N/V). proMETHazin Yes [id number] 25mg Take 1 NPI:183 e 25 mg 3-17 tablet by [id number] tablet 00:00: mouth 00 every 6 (six) hours as needed for Nausea and Vomiting (N/V). proMETHazin Yes [id number] 25mg Take 1 NPI:183 e 25 mg 3-17 tablet by [id number] tablet 00:00: mouth 00 every 6 (six) hours as needed for Nausea and Vomiting (N/V). proMETHazin Yes [id number] 25mg Take 1 NPI:183 e 25 mg 3-17 tablet by [id number] tablet 00:00: mouth 00 every 6 (six) hours as needed for Nausea and Vomiting (N/V). Immunizations Ordered Immunization Filled Immunization Date Status Commen ts Source Name Name Influenza Virus 2019-06-30 Completed NPI:[id number] Vaccine Quad .5 mL 00:00:00 IM 6+ MO Influenza Virus 2019-06-30 Completed NPI:[id number] Vaccine Quad .5 mL 00:00:00 IM 6+ MO Influenza Virus 2019-06-30 Completed NPI:[id number] Vaccine Quad .5 mL 00:00:00 IM 6+ MO Influenza Virus 2019-06-30 Completed NPI:[id number] Vaccine Quad .5 mL 00:00:00 IM 6+ MO Influenza Virus 2019-06-30 Completed NPI:[id number] Vaccine Quad .5 mL 00:00:00 IM 6+ MO HPV9 2016-03-14 Completed 00:00:00 HPV9 2016-03-14 Completed 00:00:00 HPV9 2016-03-14 Completed 00:00:00 HPV9 2016-03-14 Completed 00:00:00 HPV9 2016-03-14 Completed 00:00:00 HPV9 2016-01-13 Completed 00:00:00 HPV9 2016-01-13 Completed 00:00:00 HPV9 2016-01-13 Completed 00:00:00 HPV9 2016-01-13 Completed 00:00:00 HPV9 2016-01-13 Completed 00:00:00 TDAP 2015-09-23 Completed 00:00:00 TDAP 2015-09-23 Completed 00:00:00 TDAP 2015-09-23 Completed 00:00:00 TDAP 2015-09-23 Completed 00:00:00 TDAP 2015-09-23 Completed 00:00:00 Influenza Virus 2015-04-22 Completed NPI:[id number] Vaccine Quad IM 3+ 00:00:00 YRS Influenza Virus 2015-04-22 Completed NPI:[id number] Vaccine Quad IM 3+ 00:00:00 YRS Influenza Virus 2015-04-22 Completed NPI:[id number] Vaccine Quad IM 3+ 00:00:00 YRS Influenza Virus 2015-04-22 Completed NPI:[id number] Vaccine Quad IM 3+ 00:00:00 YRS Influenza Virus 2015-04-22 Completed NPI:[id number] Vaccine Quad IM 3+ 00:00:00 YRS Td 2008-04-07 Completed 00:00:00 Td 2008-04-07 Completed 00:00:00 Td 2008-04-07 Completed 00:00:00 Td 2008-04-07 Completed 00:00:00 Td 2008-04-07 Completed 00:00:00 Vital Signs Vital Name Observation Time Observation Value Comments Source Systolic blood pressure 2021-10-05 15:50:00 137 mm[Hg] Diastolic blood 2021-10-05 15:50:00 75 mm[Hg] NPI:1 [id number] pressure Heart rate 2021-10-05 15:50:00 82 /min NPI:[id number] Body temperature 2021-10-05 15:50:00 36.06 Sandra Respiratory rate 2021-10-05 15:50:00 18 /min Body height 2021-10-05 15:50:00 165.1 cm NPI:[id number] Body weight 2021-10-05 15:50:00 73.936 kg NPI:[id number] BMI 2021-10-05 15:50:00 27.12 kg/m2 NPI:[id number] Procedures Procedure Date / Time Performed Performing Clinician Sourc e POCT URINALYSIS 2021-10-05 15:51:00 An Encinas NPI:[id number] Encounters Start End Encounter Admission Attending Care Care Encounter Source Date/Time Date/Time Type Type Clinicians Facility Department ID 2021-11-02 2021-11-02 Outpatient R JARROD [facility] [id number] NPI:183 09:30:00 09:30:00 AN [id number] 2021-10-30 2021-10-30 Abstract Vidaraeannalyce [facility] [id number] NPI:183 00:00:00 00:00:00 An Nolasco AGENCY DIRECTOR [id number] [facility] [id number] MATERNAL [id number] & CHILD 107 [facility] 2021-10-23 2021-10-23 [facility] [id number]. [id number] NPI:183 12:00:00 12:12:21 Visit Jackie Armando AGENCY DIRECTOR [id number] [facility] [id number] MATERNAL [id number] & CHILD 125 [facility] 2021-10-23 2021-10-23 Outpatient R [facility] [id number] NPI:183 12:00:00 12:00:00 [id number] 2021-10-23 2021-10-23 Outpatient R LEMUEL [facility] [id number] NPI:183 12:00:00 12:00:00 JACKIE [id number] 2021-10-23 2021-10-23 Fish Icer 1, [facility] 1.2. [id number] NPI:183 11:15:00 12:00:00 Visit Wei Thomas AGENCY DIRECTOR [id number] [facility] [id number] MATERNAL [id number] & CHILD 369 [facility] 2021-10-05 2021-10-05 [facility] [id number] NPI:183 10:45:00 11:19:34 [place] [id number] 2021-10-05 2021-10-05 [facility] [id number] NPI:183 10:45:00 11:19:34 An Nolasco AGENCY DIRECTOR [id number] Visit REGIONAL [id number] MATERNAL [id number] & CHILD 107 [facility] 2021-09-20 2021-09-20 [facility] [id number] NPI:183 00:00:00 00:00:00 An Nolasco AGENCY DIRECTOR [id number] [facility] [id number] MATERNAL [id number] & CHILD 107 [facility] 2021-09-07 2021-09-07 Out[facility] [id number] NPI:183 08:30:00 10:16:[place] [id number] 2020-04-11 2020-04-11 Laboratory Lab, [facility] [id number] 14:31:50 14:51:50 Only Fam Pob [facility] [id number] [place] [id number] Professio [id number] nal [address] 2020-03-31 2020-03-31 Office [facility] [id number] 10:54:57 11:38:37 Visit An Nolasco AGENCY DIRECTOR [id number] [facility] [id number] MATERNAL [id number] & CHILD 107 [facility] Results Test Description Test Time Test Comments Results Result Comments Source POCT URINALYSIS W SPECIFIC GRAVITY 2021-10-05 15:51:00 Test Item Value Reference Range Interpretation Comme nts POCT U SP GRAV (test code = 3255) . 1.005-1.025 POCT PH U (test code = 3254) . 5-8 POCT U LEUK EST (test code = 3263) . Negative - Negative POCT U NIT (test code = 3262) . Negative - Negative POCT U PROT (test code = 3259) 1+ Negative - Negative POCT U GLU (test code = 3256) Neg Negative - Negative POCT U KETONE (test code = 3258) . Negative - Negative POCT U UROBILI (test code = 3260) . 0.2-1 POCT U BILI (test code = 3261) . Negative - Negative POCT U BLD (test code = 3257) . Negative - Negative POCT U COLOR (test code = 3266) POCT U APPEAR (test code = 3264)
[2021-11-01 00:53] LABS: Urine Blood Trace-lysed (Negative); Urine Glucose Negative (Negative); Urine Protein Negative (Negative); Urine Specific Gravity 1.025 (1.005-1.030); Urine pH 6.5 (5.0-7.0)
[2021-11-01 00:58] LABS: Urine Specific Gravity/Preg 1.025 (1.005-1.030)
--- NOTE | 2021-11-01 03:06 | ER ---
Nurse's Notes [facility] Name: Angela Carmen Age: 25 yrs Sex: Female : 1995 Arrival Date: 11/01/2021 Time: 00:21 Bed 19 Private MD: Diagnosis: Lower abdominal pain, unspecified Presentation: 11/01 00:45 Chief complaint: Patient states: Sudden onset of pelvic pain radiating to low back at lp1 1999; Denies any vaginal discharge or bleeding, urinary pain; Reports about 12 weeks . Coronavirus screen: At this time, the client does not indicate any symptoms associated with coronavirus-19. Ebola Screen: No symptoms or risks identified at this time. Initial Sepsis Screen: Does the patient meet any 2 criteria? No. Patient's initial sepsis screen is negative. Does the patient have a suspected source of infection? No. Patient's initial sepsis screen is negative. Risk Assessment: Do you want to hurt yourself or someone else? Patient reports no desire to harm self or others. Onset of symptoms was November 01, 2021. 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 - Social history:: Smoking status: Patient denies any tobacco usage or history of. - Family history:: not pertinent. - Hospitalizations: : No recent hospitalization is reported. Screenin:11 Abuse screen: Denies threats or abuse. Nutritional screening: No deficits noted. ag7 Tuberculosis screening: No symptoms or risk factors identified. Fall Risk No fall in past 12 months (0 pts). No secondary diagnosis (0 pts). No IV (0 pts). Ambulatory Aid- None/Bed Rest/Nurse Assist (0 pts). Gait- Normal/Bed Rest/Wheelchair (0 pts) Mental Status- Oriented to own ability (0 pts). Total Mustafa Fall Scale indicates No Risk (0-24 pts). Assessment: 00:55 General: Appears in no apparent distress. Behavior is calm, cooperative, appropriate ag7 for age. Pain: Complains of pain in pelvis Pain does not radiate. Pain currently is 4 out of 10 on a pain scale. Quality of pain is described as aching, Pain began suddenly, Is continuous, Alleviated by nothing. Neuro: Level of Consciousness is awake, alert, obeys commands, Oriented to person, Appropriate for age. Cardiovascular: Heart tones S1 S2 present Patient's skin is warm and dry. Respiratory: Airway is patent Trachea midline Respiratory effort is even, unlabored, Respiratory pattern is regular, symmetrical, Breath sounds are clear bilaterally. GI: Abdomen is round Last BM was October 31, 2021. Bowel sounds present X 4 quads. Reports lower abdominal pain. : Reports pain in suprapubic area. 02:00 Reassessment: Patient and/or family updated on plan of care and expected duration. Pain ag7 level reassessed. Patient is alert, oriented x 3, equal unlabored respirations, skin warm/dry/pink. Patient states feeling better. 03:09 Reassessment: No changes from previously documented assessment. ag7 Vital Signs: 00:45 BP 147 / 91; Pulse 95; Resp 16; Temp 98.1(TE); Pulse Ox 100% on R/A; Weight 73.94 kg lp1 (R); Height 5 ft. 5 in. (165.10 cm); Pain 6/10; 03:09 BP 123 / 64; Pulse 69; Resp 16 S; Pulse Ox 100% on R/A; Pain 4/10; ag7 00:45 Body Mass Index 27.12 (73.94 kg, 165.10 cm) lp1 ED Course: 00:21 Patient arrived in ED. bp1 00:38 Kayden Amaya MD is Attending Physician. rn 00:45 Arm band placed on. lp1 00:47 Triage completed. lp1 01:41 Giulia Mcdermott, JOSE is Primary Nurse. ag7 01:52 US OB Limited In Process Unspecified. EDMS 02:06 Urine Dipstick-Ancillary Sent. ag7 02:11 Patient has correct armband on for positive identification. Bed in low position. Call ag7 light in reach. Side rails up X 1. 03:18 No provider procedures requiring assistance completed. Patient did not have IV access ag7 during this emergency room visit. Administered Medications: No medications were administered Outcome: 03:06 Discharge ordered by . rn 03:18 Discharged to home ambulatory. ag7 03:18 Condition: stable 03:18 Discharge instructions given to patient, Instructed on discharge instructions, follow up and referral plans. Demonstrated understanding of instructions, follow-up care. 03:19 Patient left the ED. ag7 Signatures: Dispatcher [employer] EDMS Kayden Amaya MD MD rn Pena, Laura RN RN lp1 Yumiko Wooten Angela, RN RN ag7
--- NOTE | 2021-11-01 03:06 | EDPHYS ---
Physician Documentation [facility] Name: Angela Carmen Age: 25 yrs Sex: Female : 1995 Arrival Date: 11/01/2021 Time: 00:21 Bed 19 Private MD: ED Physician Kayden Amaya HPI: 11/01 02:59 This 25 yrs old Female presents to ER via Ambulatory with complaints of Pelvic rn Pain. 02:59 The patient presents to the emergency department with abdominal pain, of the suprapubic rn area, that started last night, described as crampy. The estimated gestational age is 12 weeks. course: care: at a clinic, Ultrasound: the patient had an ultrasound. Previous pregnancies: in previous pregnancies patient has had. Associated signs and symptoms: Pertinent negatives: chest pain, diarrhea, frequency, ruptured membranes, vaginal bleeding, vaginal discharge. The patient has not experienced similar symptoms in the past. The patient has been recently seen by a physician:. Pt reports lower abd pain/cramping since last night. No trauma. No vaginal bleeding or discharge. Reports vomiting, but normal amount since beginning of . Just had normal u/s for this last week. No fever. . 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 - Social history:: Smoking status: Patient denies any tobacco usage or history of. - Family history:: not pertinent. - Hospitalizations: : No recent hospitalization is reported. ROS: 02:59 Constitutional: Negative for fever, chills, and weight loss, Eyes: Negative for injury, rn pain, redness, and discharge, Neck: Negative for injury, pain, and swelling, Cardiovascular: Negative for chest pain, palpitations, and edema, Respiratory: Negative for shortness of breath, cough, wheezing, and pleuritic chest pain, Abdomen/GI: + lower abd pain/cramping Back: Negative for injury and pain, : Negative for injury, bleeding, discharge, and swelling, MS/Extremity: Negative for injury and deformity, Skin: Negative for injury, rash, and discoloration, Neuro: Negative for headache, weakness, numbness, tingling, and seizure. Exam: 02:59 Constitutional: This is a well developed, well nourished patient who is awake, alert, rn and in no acute distress. Head/Face: Normocephalic, atraumatic. Cardiovascular: Regular rate and rhythm. No pulse deficits. Respiratory: No increased work of breathing, no retractions or nasal flaring. Abdomen/GI: soft, + mild suprapubic tenderness, no rebound Skin: Warm, dry with normal turgor. Normal color with no rashes, no lesions, and no evidence of cellulitis. MS/ Extremity: Pulses equal, no cyanosis. Neurovascular intact. Full, normal range of motion. Equal circumference. Neuro: Awake and alert, GCS 15 Vital Signs: 00:45 BP 147 / 91; Pulse 95; Resp 16; Temp 98.1(TE); Pulse Ox 100% on R/A; Weight 73.94 kg lp1 (R); Height 5 ft. 5 in. (165.10 cm); Pain 6/10; 03:09 BP 123 / 64; Pulse 69; Resp 16 S; Pulse Ox 100% on R/A; Pain 4/10; ag7 00:45 Body Mass Index 27.12 (73.94 kg, 165.10 cm) lp1 MDM: 00:38 Patient medically screened. rn 02:59 Differential diagnosis: threatened Ab. Data reviewed: vital signs, nurses notes, laboratory equipment cleaner test result(s), radiologic studies, ultrasound, and as a result, I will discharge patient. Counseling: I had a detailed discussion with the patient and/or guardian regarding: the historical points, exam findings, and any diagnostic results supporting the discharge/admit diagnosis, lab results, radiology results, the need for outpatient follow up, to return to the emergency department if symptoms worsen or persist or if there are any questions or concerns that arise at home. Special discussion: Based on the patient's Hx, exam, and Dx evaluation, there is no indication for emergent surgery or inpatient Tx. It is understood by the patient/guardian that if the Sx's persist or worsen they need to return immediately for re-evaluation. I discussed with the patient/guardian in detail that at this point there is no indication for admission to the hospital. It is understood, however, that if the symptoms persist or worsen the patient needs to return immediately for re-evaluation. ED course: U/S shows single viable IUP with normal FHTs, UA negative. denies vaginal bleeding or leakage of fluid. No fever. Will dc home with OB f/u and return precautions.. 11/01 00:53 Order name: Urine Dipstick-Ancillary; Complete Time: 00:54 [facility] 11/01 00:55 Order name: Urine Dipstick-Ancillary [facility] 11/01 00:55 Order name: Urine Dipstick-Ancillary (obtain specimen); Complete Time: 00:55 [facility] 11/01 00:55 Order name: Urine Test (obtain specimen); Complete Time: 00:55 [facility] 11/01 00:55 Order name: Urine --Ancillary (enter results); Complete Time: 01:01 [facility] 11/01 01:01 Order name: OB Limited rn Administered Medications: No medications were administered Disposition Summary: 11/01/21 03:06 Discharge Ordered Location: Home rn Problem: new rn Symptoms: have improved rn Condition: Stable rn Diagnosis - Lower abdominal pain, unspecified rn Followup: rn - With: Private Physician - When: As needed - Reason: Recheck today's complaints, Re-evaluation by your physician Discharge Instructions: - Discharge Summary Sheet rn - Abdominal Pain During rn Forms: - Medication Reconciliation Form rn - Thank You Letter rn - Antibiotic sports attorney - Prescription Opioid Use rn Signatures: Dispatcher [employer] [facility] Kayden Amaya MD MD rn Pena, Laura, RN RN lp1
[2021-11-01 04:46] VITALS: TEMP 98.1; O2SAT 100
[2021-11-01 04:47] VITALS: BP 123/64
[2021-11-01] MEDS ORDERED: NA CHLORIDE 0.9% 1,000 ML ONE (07:14)
--- NOTE | 2021-11-01 14:07 | RAD REPORT ---
EXAM DESCRIPTION: OB Limited 11/01/2021 2:00 AM CDT CLINICAL HISTORY: 25 years, Female, abd pain, cramping COMPARISON: None . FINDINGS: Multiple grayscale images of the female pelvis were performed. The right ovary measures 2.1 x 1.4 x 1.5 cm. The left ovary was not visualized. There is a posterior uterine wall contraction. There are no adnexal masses There is a single living intrauterine in variable presentation with multiple ultrasonograph ic measurements: AC mean measurement of 7.29 cm corresponding to an ultrasonographic gestational age of 13 weeks and 5 days. FL mean measurement of 1.38 cm corresponding to an ultrasonographic gestational age of 14 weeks and 0 days. Mean ultrasound gestational age of 13 weeks and 6 days with an estimated date of delivery of May 03, 2022. There is normal movement. heart motion was detected at of 151 beats per minute. Placenta was posterior with no evidence for previa. The cervix is closed. KHLOE appropriate. IMPRESSION: Single living intrauterine at 13 weeks and 6 days. Electronically signed by: Chandrakant Tilley MD 11/01/2021 2:03 AM CDT Due to temporary technical issues with the PACS/Fluency reporting system, reports are being signed by the in house radiologist without review as a courtesy to ensure prompt reporting. The interpreting r adiologist is fully responsible for the content of the report.
== END 2021-11-01 03:19 | disposition home or self-care (01) ==
LOC: ER 00:15
DX: O26.891 Other specified pregnancy related conditions, first trimester (principal); Z3A.13 13 weeks gestation of pregnancy
CPT/HCPCS: 81025; 81003; 76815; 99283; J7030